=== PATIENT | male | born 1995 | race Caucasian/White ===

== ENCOUNTER 2021-04-15 16:19 | Emergency (ER) | payer OTHER ==
[~2021-04-15] VITALS: Ht 177.8 cm; Wt 77.1 kg
[2021-04-15 16:27] VITALS: BP 133/79
[2021-04-15] MEDS ORDERED: ACET-8386 PO (18:07)
[2021-04-15] MEDS ORDERED: IBUP-2213 PO (18:07)
[2021-04-15 18:20] VITALS: BP 133/79
--- NOTE | 2021-04-15 18:21 | NUR ---
Patient discharged with v/s stable. Written and verbal after care instructions given and explained. Patient alert, oriented and verbalized understanding of instructions. Ambulatory with steady gait. All questions addressed prior to discharge. ID band removed. Patient advised to follow up with PMD. Rx of HYDROCODONE AND IBUPROFEN given. Patient educated on indication of medication including possible reaction and side effects. Opportunity to ask questions provided and answered.
--- NOTE | 2021-04-15 18:21 | NUR ---
NO NURSING INTERVENTIONS REQUIRED
== END 2021-04-15 18:21 | disposition home or self-care (01) ==
LOC: MED 16:19
DX: R51.9 Headache, unspecified (principal); R22.0 Localized swelling, mass and lump, head
CPT/HCPCS: 70450; 99284